=== PATIENT | female | born 1950 | race Caucasian/White ===

== ENCOUNTER → 2016-03-22 | Outpatient (CLI) | payer BC ==
[2015-03-03 08:03] VITALS: BP 110/70
[~2016-03-22] MED LIST: ESTR1TAB15 PO; GABA-587 PO; LEVO75TA5 PO; PROG100C7 PO
--- NOTE | 2016-03-22 11:47 | KCIC ---
PROCEDURE MRI of the cervical spine without contrast 03/22/2016 HISTORY Chronic neck pain which radiates down the left arm. TECHNIQUE Unenhanced T1 weighted, T2 weighted and inversion recovery sagittal and gradient echo and T2 weighted axial images of the cervical spine were obtained. FINDINGS Sagittal and coronal reconstructed images demonstrate minimal lateral curvature of the cervical spine convex to the right. There is straightening of the normal cervical lordosis. Degenerative signal changes are seen involving all of the discs of the cervical spine. Loss of height of the C4-5, C5-6 and C6-7 discs is noted. Degenerative signal changes are seen within the marrow surrounding these discs. No area of abnormal signal intensity is seen involving the cervical spinal cord. On the axial images at the C2-3 disc space thereis a minimal generalized disc bulge. Degenerative changes are seen involving the uncovertebral and facet joints bilaterally. These findings do not result in significant central spinal canal or neural foraminal stenosis. At the C3-4 disc space there is mild generalized disc bulge. Degenerative changes are seen involving the uncovertebral and facet joints, left greater than right. These findings when combined do not result in significant central spinal canal stenosis. Mild left neural foraminal stenosis is seen. The right neural foramina is patent. At the C4-5 disc space there is mild generalized disc bulge. Superimposed on the disc bulge is a focal central disc osteophyte complex. This measures 3 millimeters in AP diameter. Degenerative changes are seen involving the uncovertebral and facet joints, right greater than left. These findings when combined efface the anterior CSF without resulting in significant central spinal canal stenosis. Mild right neural foraminal stenosis is seen. The left neural foramina is patent. At the C5-6 disc space there is a minimal generalized disc bulge. Degenerative changes are seen involving the uncovertebral and facet joints bilaterally. These findings do not result in significant central spinal canal or neural foraminal stenosis. At the C6-7 disc space there is a mild to moderate generalized disc bulge. Degenerative changes are seen involving the uncovertebral and facet joints, left greater than right. These findings efface the anterior CSF without resulting in significant central spinal canal stenosis. Mild left neural foraminal stenosis is seen. The right neural foramina is patent. At the C7-T1 disc space there is a mild generalized disc bulge. Superimposed on the disc bulge is a left paracentral/lateral disc osteophyte complex. This measures 4 millimeters in AP diameter.These findings when combined do not result in significant central spinal canal stenosis. Moderate to severe left neural foraminal stenosis is seen. The disc osteophyte complex appears to impinge upon the exiting left C8 nerve root. The right neural foramina is patent. IMPRESSION Degenerative changes are seen throughout the cervical spine. These findings do not result in significant central spinal canal stenosis at any level. Mild left neural foraminal stenosis is seen at C3-4 and C6-7. Mild right neural foraminal stenosis seen at C4-5. At the C7-T1 disc space a left paracentral/lateral disc osteophyte complex is seen which contributes to moderate to severe left neural foraminal stenosis and appears to impinge upon the exiting left C8 nerve root as outlined above. Electronically signed by: Vin Hickey MD (Mar 22, 2016 11:46:47)
== END | disposition home or self-care (01) ==
LOC: KCIC MRI 07:41
PROVIDERS: ATTEND Family Medicine
DX: M54.12 Radiculopathy, cervical region (principal); M47.892 Other spondylosis, cervical region; M48.02 Spinal stenosis, cervical region; M25.78 Osteophyte, vertebrae; G89.29 Other chronic pain
CPT/HCPCS: 72141

== ENCOUNTER → 2016-03-29 | Outpatient (CLI) | payer BC, OTHER ==
[2015-03-03 08:03] VITALS: BP 110/70
[~2016-03-29] MED LIST changes: +GABA800T2 PO; +IBUP-1007 PO; +IOHEXOL 180 MG/ML 10 ML VIAL. ONE; +methylPREDNISolone ACETATE 40 MG/ML VIAL. ONE; +methylPREDNISolone ACETATE 80 MG/ML VIAL. ONE
--- NOTE | 2016-03-30 01:35 | PAIN ---
DATE OF SERVICE: 03/29/2016 PROGRESS NOTE DIAGNOSES: Cervical radiculopathy with cervical degenerative disk disease. HISTORY OF PRESENT ILLNESS: The patient is a 65-year-old female, who returns for followup status post cervical epidural steroid injections in the past as well as lumbar epidural steroid injections. The patient reports she did very well with each of these, most recently here in 02/2015. The patient reports that now she has increased pain in the base of the neck and left upper extremity, her low back is doing very well and she is very pleased with her progress with it, but the neck and left arm are becoming much more noticeable, much more painful, worse with activity, standing, walking, using her upper extremity for any repetitive motions or even holding items with the left arm or raising over her head on the left side is causing some significant pain, radiation into the left upper extremity, mostly in the posterior shoulder, posterior triceps region and into the fourth and fifth fingers on the left hand. The patient reports no loss of motor function, however, but significant pain with activity involving neck and left arm. The patient's old chart was reviewed as her current medication regimen updated. Current review of systems updated today as well. PHYSICAL EXAMINATION: VITAL SIGNS: Today, blood pressure is 134/77, pulse is 72, respirations 18, temperature 98.3 degrees Fahrenheit, height is 5 feet 2 inches and weighs 141 pounds. GENERAL: The patient is awake, alert, oriented, appropriate, very pleasant demeanor. HEENT: Shows normocephalic and atraumatic. Extraocular movements are intact and symmetrical. Oral cavity shows mucous membranes are moist and pink. Dentition is intact. NECK: Shows anterior throat supple. CHEST: Shows breath sounds clear to auscultation bilaterally. HEART: Shows S1 and S2 clear. ABDOMEN: Soft, nontender, nondistended. BACK: The patient's back shows spine grossly in midline. Low lumbar paraspinous musculature is only very mildly tender with palpation. The patient shows good rotation and motion both laterally as well as extension and flexion. Neck shows some good rotation as well, right and left lateral, greater than 45 degrees with some minor tenderness with extension, but not with forward flexion, mainly in the base of the neck, paraspinous musculature symmetrical on appearance. No atrophy or hypertrophy. Some mild tenderness with palpation in the low cervical paraspinous musculature as well as superomedial trapezius, but is symmetrical. EXTREMITIES: Upper extremities show deep tendon reflexes at 2+ in the biceps and triceps tendons. Motor exam is strong with roving court reporter strength rated at 5/5 as is biceps and triceps flexion. PLAN: Options were discussed with the patient. We will proceed with a cervical epidural steroid injection today with fluoroscopic guidance. Risks were again discussed including, but not limited to bleeding, infection, possibility of epidural hematoma and subsequent neurologic compromise, dural puncture, headaches, spinal cord and/or nerve damage, side effects of steroid medication and poor results regarding pain control. The patient understands and wished to proceed. The patient will return to the clinic in approximately 2 weeks for followup. She was counseled on return appointment, activity level and side effects to be aware of. DIAGNOSES: Cervical radiculopathy with cervical degenerative disk disease. PROCEDURE: Cervical epidural steroid injection in translaminar approach at the C6-C7 level using C-arm fluoroscopic guidance and local anesthesia. MEDICATIONS INJECTED: Depo-Medrol 120 mg plus 5 mL of preservative-free normal saline and 2 mL of Isovue for contrast. CONDITION AT DISCHARGE: Stable. The patient tolerated the procedure well, had no complications. JO LUI MD DR: NAVA/lalita JOB#: [id number] / [id number]
== END ==
LOC: PNCL 10:19
PROVIDERS: ATTEND Anesthesiology
DX: M50.123 Cervical disc disorder at C6-C7 level with radiculopathy (principal)
CPT/HCPCS: 62321; J1030; J1040

== ENCOUNTER → 2016-05-10 | Outpatient (CLI) | payer OTHER ==
[2015-03-03 08:03] VITALS: BP 110/70
--- NOTE | 2016-05-11 02:57 | PAIN ---
DATE OF SERVICE: 05/10/2016 DIAGNOSES: 1. Cervical radiculopathy with cervical degenerative disk disease. 2. Lumbar radiculopathy with lumbar spinal stenosis. HISTORY OF PRESENT ILLNESS: The patient is a 65-year-old female who returns for followup status post cervical epidural steroid injection x 1 on 03/29/2016. The patient reports she did very well at 75% improvement in the neck and left upper extremity pain, still some tingling in the shoulders, but ____ getting to return to a moderate extent for about last week or so, 2 on a scale 10, worse with repetitive motions of the left upper extremity and reaching, grabbing, holding, and lifting items with left arm. No loss of motor function or dropping items. There is some soreness sensation in the left shoulder as well as the base of the neck with repetitive motions. The patient reports it has not been waking her from sleep. She has been doing well with this and most times it is reasonably comfortable during the day, but with some tingling and numbness as well in the left shoulder and upper arm more to the forearm. The patient reports no new changes or other complaints. PHYSICAL EXAMINATION: VITAL SIGNS: The patient's blood pressure is 129/75, pulse 72, respirations 18, temperature 98.1 degrees Fahrenheit, height is 5 feet 2 inches, and weight is 137 pounds. GENERAL: The patient is awake, alert, oriented, appropriate, very pleasant demeanor. HEENT: Head shows normocephalic, atraumatic. Extraocular movements are intact and symmetrical. Oral cavity shows mucous membranes moist and pink. Dentition is intact. NECK: Shows anterior throat supple without palpable lymphadenopathy noted. Swallow reflex is symmetrical. CHEST: Shows normal on inspection. Breath sounds are clear to auscultation bilaterally. HEART: Shows S1 and S2 clear. ABDOMEN: Soft, nontender, and nondistended. No palpable organomegaly is noted. No rebound or guarding demonstrated. BACK: Shows spine grossly midline. Cervical paraspinous musculature, some mild to moderate tenderness in the low cervical distribution bilaterally into the superior medial trapezius, slightly more tender on the left than the right, but appears symmetrical without evidence of atrophy, hypertrophy, no trigger points, no radiation of pain. The patient shows full rotational motion of cervical spine, both laterally as well as extension and flexion without exacerbation of pain as well. EXTREMITIES: Upper extremities show deep tendon reflexes 2+ in the biceps and triceps tendons. Motor exam is 5/5 with ore feeder strength, biceps and triceps flexion and symmetrical. Peripheral pulses are 2+ in radial distribution. No peripheral edema is noted. Options were discussed with the patient and the patient's old chart was reviewed as her current medication regimen updated. Current review of systems updated today as well. We will proceed with a second cervical epidural steroid injection today with fluoroscopic guidance. Risks were again discussed including, but not limited to bleeding, infection, possibility of epidural hematoma, subsequent neurologic compromise, dural puncture, headaches, spinal cord and/or nerve damage, side effects of steroid medication and poor results regarding pain control. The patient understands and wished to proceed. The patient will return to clinic in approximately 2 weeks for followup, was counseled on return appointment, activity level, and side effects to be aware of. DIAGNOSIS: Cervical radiculopathy with cervical degenerative disk disease. PROCEDURE: Cervical epidural steroid injection in translaminar approach at C6-C7 level using C-arm fluoroscopic guidance under sterile prep and drape using local anesthetic. MEDICATION INJECTED: Depo-Medrol 120 mg plus preservative-free normal saline 5 mL and 2 mL of Isovue for contrast. CONDITION AT DISCHARGE: Stable. The patient tolerated procedure well, had no complications. JO LUI MD DR: NAVA/lalita JOB#: [id number] / [id number]
== END | disposition home or self-care (01) ==
LOC: PNCL 08:02
PROVIDERS: ATTEND Anesthesiology
DX: M50.123 Cervical disc disorder at C6-C7 level with radiculopathy (principal); E03.9 Hypothyroidism, unspecified; Z87.39 Personal history of other diseases of the musculoskeletal system and connective tissue
CPT/HCPCS: 62321; J1030; J1040

== ENCOUNTER 2016-08-28 14:46 | Emergency (ER) | payer OTHER ==
[~2016-08-28] VITALS: Ht 157.5 cm; Wt 57.2 kg
[~2016-08-28 14:46] MED LIST changes: -IOHEXOL 180 MG/ML 10 ML VIAL. ONE; +PROG100C15 PO; -PROG100C7 PO; -methylPREDNISolone ACETATE 40 MG/ML VIAL. ONE; -methylPREDNISolone ACETATE 80 MG/ML VIAL. ONE
[2016-08-28 15:01] VITALS: BP 146/65
[2016-08-28] MEDS ORDERED: LIDOCAINE 1% / SOD BICARB 8.4% 20 ML VIAL. IJ ONE ×2 (15:27→15:30)
[2016-08-28] MEDS ORDERED: DIPHTH,PERTUSS(ACELL),TET TOX 0.5 ML DISP.SYRIN. VAX IM ONE (15:30)
--- NOTE | 2016-08-28 15:31 | PHYS DOC ---
Past Medical History Past Medical History: No Pertinent History Past Surgical History: Other Additional Past Surgical Histo: (R) ARM/SHOULDER REPAIR Alcohol Use: Rarely Drug Use: None Adult General Chief Complaint Chief Complaint: LACERATION/AVULSION HPI HPI Patient is a 65 year old female who presents with right index finger knuckle laceration. 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 Review of Systems Review of Systems Constitutional: Denies fever or chills [] Eyes: Denies change in visual acuity, redness, or eye pain [] Musculoskeletal: Denies back pain or joint pain [] Integument: right index finger knuckle laceration Neurologic: Denies headache, focal weakness or sensory changes [] Endocrine: Denies polyuria or polydipsia [] Current Medications Current Medications Current Medications Medications (Trade) Dose Ordered Sig/Emma Start Time Stop Time Status Last Admin Dose Admin Diphtheria/ Tetanus/Acell Pertussis (Boostrix) 0.5 ml ONCE ONCE 08/28/16 15:30 08/28/16 15:31 DC Lidocaine/Sodium Bicarbonate (Buffered Lidocaine 1%) 20 ml 1X ONCE 08/28/16 15:30 08/28/16 15:31 DC Allergies Allergies Allergies Coded Allergies Type Severity Reaction Last Updated Verified No Known Drug Allergies 08/24/14 No Physical Exam Physical Exam Constitutional: Well developed, well nourished, no acute distress, non-toxic appearance. [] HENT: Normocephalic, atraumatic, bilateral external ears normal, oropharynx moist, no oral exudates, nose normal. [] Skin: Knuckle the right index finger with a laceration approximately 2 cm long, there is no obvious tendon involvement. Patient able to flex and extend the right index finger at the MIP, PIP and DIP joints. Adequate radial sensation to the right index finger. +2 right radial pulse. Cap refill less than 2 seconds the right index finger. Back: No tenderness, no CVA tenderness. [] Extremities: No tenderness, no cyanosis, no clubbing, ROM intact, no edema. [] Neurologic: Alert and oriented X 3, normal motor function, normal sensory function, no focal deficits noted. [] Psychologic: Affect normal, judgement normal, mood normal. [] Current Patient Data Vital Signs Vital Signs Date Time Temp Pulse Resp B/P (MAP) Pulse Ox O2 Delivery O2 Flow Rate FiO2 08/28/16 15:01 98.0 76 14 98 Room Air 98.0 EKG EKG [] Radiology/Procedures Radiology/Procedures Indication: Right index finger knuckle laceration Procedure: The patient was placed in the appropriate position and anesthesia around the laceration was 1% buffered lidocaine. The area was then cleaned with 250 ML of normal saline and Betadine. The laceration was closed with 5 interrupted sutures using 5.0 Ethlon. The wound area was then dressed with gauzed. Total repaired wound length:approx. 2 cm Other Items: none The patient tolerated the procedure well Complications: none Course & Med Decision Making Course & Med Decision Making Pertinent Labs and Imaging studies reviewed. (See chart for details) Patient has right index finger laceration which was closed by me with stitches as noted in procedures. She was provided wound care instructions as well as return precautions. She is to follow-up with employee health in 7-10 days for suture removal. She was given tetanus in the ED. Dragon Disclaimer Dragon Disclaimer This electronic medical record was generated, in whole or in part, using a voice recognition dictation system. Departure Departure Impression: Primary Impression: Laceration of right hand Disposition: 01 HOME, SELF-CARE Condition: STABLE Referrals: ANI PATEL MD (PCP) Follow up with employee health office for [facility] in 7-10 days for suture removal and wound check Patient Instructions: Laceration Care, Adult Additional Instructions: You were seen for right hand laceration which was closed with stitches. Keep the area clean and dry. Apply Neosporin to the area twice a day. Monitor it for signs and symptoms of infection including increased redness, warmth over the area, yellow, or purulent drainage over the area or if you develop a fever and return to the ED. Follow-up with employee health in 7-10 days for suture removal. Problem Qualifiers Primary Impression: Laceration of right hand Encounter type: initial encounter Foreign body presence: without foreign body Qualified Codes: S61.411A - Laceration without foreign body of right hand , initial encounter HAYLIE DAVIDSON APRN Aug 28, 2016 15:31
== END 2016-08-28 16:08 | disposition home or self-care (01) ==
LOC: ER 14:46
DX: S61.210A Laceration without foreign body of right index finger without damage to nail, initial encounter (principal); W23.0XXA Caught, crushed, jammed, or pinched between moving objects, initial encounter; Y93.89 Activity, other specified; Y99.8 Other external cause status; Y92.238 Other place in hospital as the place of occurrence of the external cause
CPT/HCPCS: 12001; 90471; 90715; 99283-25

== ENCOUNTER → 2016-09-05 | Outpatient (CLI) | payer OTHER ==
[2016-08-28 15:01] VITALS: BP 146/65
--- NOTE | 2016-09-05 09:46 | KCIC ---
Limited abdomen ultrasound History: Right upper quadrant pain, nausea and vomiting Comparison: None. Findings: Multiple sonographic images of the abdomen are submitted. No abnormality is identified of the visualized pancreas, tail not well-visualized due to bowel gas. No focal hepatic lesion is demonstrated, hepatic echotexture considered within normal limits. There is segmental visualization of the inferior vena cava. Gallbladder is present without pericholecystic fluid. However technologist reports a positive sonographic Oscar's sign. There is fold of the gallbladder. There is apparently mild dependent echogenicity in the gallbladder lumen compatible with cholelithiasis. There is no gallbladder wall thickening. Common bile duct is within normal limits at 0.5 cm. No free fluid is demonstrated. Right kidney measured 10.9 x 3 x 5.8 cm, mild right pelviectasis. Impression: 1. There apparently is mild cholelithiasis. Technologist reports a positive sonographic Oscar's sign which is nonspecific in the absence of significant gallbladder wall thickening or pericholecystic fluid. There is no significant biliary ductal dilatation. Electronically signed by: Andres Muhammad MD (09/05/2016 9:42 AM)
== END | disposition home or self-care (01) ==
LOC: KCIC US 08:49
PROVIDERS: ATTEND Family Medicine
DX: R10.11 Right upper quadrant pain (principal); K82.8 Other specified diseases of gallbladder
CPT/HCPCS: 76705

== ENCOUNTER → 2016-09-27 | Day surgery (SDC) | payer OTHER ==
[~2016-09-27] VITALS: Ht 157.5 cm; Wt 56.2 kg
[~2016-09-27] MED LIST changes: +BUPIVACAINE-EPI 0.5%-1:200000 50 ML VIAL. ONE; +DEXAMETHASONE SOD PHOS 20 MG/5 ML VIAL. ONE; +GLYCOPYRROLATE 1 MG/5 ML VIAL. ONE; +HYDROmorphone 2 MG/ML VIAL IV PRN; +IOHEXOL 300 MG/ML 50 ML VIAL. ONE; +KETOROLAC 30 MG/ML INJ FOR OR. INJ ONE; +LIDOCAINE 1% 1 ML SYRINGE. ID PRN; +LIDOCAINE 2% PF Vial for OR 5 ML VIAL. ONE; +MORPHINE SULFATE 2 MG/ML DISP.SYRIN. IV PRN; +NEOSTIGMINE METHYLSULFATE 5 MG/5 ML SYRINGE. ONE; +ONDA4TAB7 PO; +ONDANSETRON PF 4 MG/2 ML VIAL. IV PRN; +ONDANSETRON PF 4 MG/2 ML VIAL. ONE; +OXYC-323 PO; +PROCHLORPERAZINE 10 MG/2 ML VIAL. IV PRN; +PROPOFOL 20 ML IV ONE; +ROCURONIUM 50 MG/5 ML VIAL. ONE; +SURGICEL HEMOSTAT 4X8 EACH. ONE; +ePHEDrine PF IN SALINE 50 MG/5 ML DISP.SYRIN IV ONE; +fentaNYL PF VIAL 250 MCG/5 ML VIAL ONE; +oxyCODONE/APAP 5/325 1 TAB TABLET PO ONE
[2016-09-27] MEDS: IV RINGERS,LACTATED 1000ML 1,000 ML IV SCH ×2 (07:00→10:22)
--- NOTE | 2016-09-27 08:42 | RAD ---
Intraoperative cholangiogram, 09/27/2016: History: Cholecystectomy 3 spot films from surgery are presented for review. Contrast has been injected into the cystic duct remnant. 0.12 minutes of fluoroscopy time was utilized. There is good flow of contrast into the duodenum at the ampulla. No filling defect is seen in the common duct to suggest a retained calculus. The incompletely opacified intrahepatic ducts are unremarkable. No contrast extravasation is seen. IMPRESSION: No significant abnormality is detected.
--- NOTE | 2016-09-27 09:10 | PDOC4 ---
Operative Note Operative Note Operative Note: Preoperative Diagnosis: Symptomatic cholelithiasis Postoperative Diagnosis: Same Procedure: Laparoscopic cholecystectomy with intraoperative cholangiogram Surgeons: Carlitos Anesthesia: GenSunil Estimated Blood Loss: 10 mL Specimen: Gallbladder to pathology Drains: None Complications: None Indications: The patient is a 65-year-old female who is been experiencing recurrent upper abdominal pain consistent with biliary colic. An ultrasound was performed that showed gallstones. Surgical treatment was offered by means of a laparoscopic cholecystectomy. The risks of surgery were discussed which include bleeding, infection, bile duct injury, bile leak, pain, the potential for additional surgeries or procedures. The patient understands and would like to proceed. Description: The patient was taken to the operating room and laid supine on the operating table. General anesthesia was performed. The abdomen was prepped with ChloraPrep and draped in a standard surgical fashion. A small infraumbilical incision was made with a scalpel. The Veress needle was then inserted and a pneumoperitoneum was then created. A 5 mm trocar was then inserted and the laparoscope was introduced. In the upper midabdomen a 5 mm trocar was inserted and in the right upper quadrant two 2.3 mm mini lap graspers were inserted. The gallbladder was retracted cephalad. The cystic duct was dissected free from surrounding tissues. One clip was placed on the duct near the gallbladder junction. An opening was made in the duct and a cholangiocatheter placed within and secured with a clip. Using contrast dye and fluoroscopy an intraoperative cholangiogram was performed that appeared unremarkable. The clip and catheter were then withdrawn. Three clips were placed on the cystic duct and it was divided. The cystic artery was then identified, dissected free, doubly clipped and divided as well. The gallbladder was then mobilized away from the liver with cautery. The umbilical 5 millimeter trocar was exchanged for an 11 millimeter trocar. The gallbladder was then placed in an endoscopic bag and extracted at the umbilical trocar site. The fascia there was closed with an 0 Vicryl suture. All blood and irrigation fluid was suctioned and hemostasis was good. The remaining ports were removed and the pneumoperitoneum was relieved. The skin incisions were injected with half percent Marcaine with epinephrine, and all were closed using 4-0 Monocryl suture. Steri-Strips and dressings were then applied. The patient tolerated the procedure well and was sent to the recovery room in stable condition. At the end of the case all counts were correct. KASSIE SEGOVIA MD Sep 27, 2016 09:10
--- NOTE | 2016-09-27 09:12 | DISCH ---
DISCHARGE INSTRUCTIONS Condition on Discharge Condition on Discharge: Stable Activity After Discharge Activity Instructions for Disc: Other, see below (no lifting over 20 lbs X 2 weeks) Driving Instructions after Dis: Other, see below (no driving while taking pain meds) Diet after Discharge Diet after Discharge: Regular Wound Incision Care Wound/Incision Care: Other, see below (may remove bandaids tomorrow and shower , steristrips will fall off on their own) Follow-Up Follow up with: Dr Segovia in the office in 2 weeks, call for appt KASSIE SEGOVIA MD Sep 27, 2016 09:12
[2016-09-27] MEDS: fentaNYL PF VIAL 100 MCG/2 ML VIAL IV PRN ×4 (09:22→10:18)
[2016-09-27 11:00] VITALS: BP 122/58
--- NOTE | 2016-09-28 16:10 | PATHOLOGY ---
PATHOLOGY REPORT * * * * * * * * FINAL DIAGNOSIS: Gallbladder "gallbladder and contents", cholecystectomy: - Moderate chronic cholecystitis with cholesterolosis. ([facility]; 09/28/2016) REPORT ELECTRONICALLY SIGNED BY: Pb Steen M.D. DATE/TIME: 09/28/2016 16:09 * * * * * * * * GROSS PATHOLOGY: Received in formalin labeled "Noelle Snyder gallbladder," is a 7.8 x 3.5 x 1.9 cm, intact gallbladder with dull zhao green serosal surfaces. Opening the gallbladder reveals yellow green velvety mucosa, with focal areas of lewis yellow striation, suggestive of cholesterolosis and an average wall thickness of 0.3 cm. The contents of the gallbladder are filtered and calculi are not present and no masses are noted grossly. Sales Representative Supervisor sections from the body and fundus are submitted along with the proximal margin in cassette A1. ([facility]; 09/27/16) INITIAL CPT CODE(S): A; 39523 Professional services performed [place] [address] Technical services performed by [facility] at [address] [place] [address] [address], [place] [address]. SPECIMEN(S) RECEIVED: A.Gallbladder and contents CLINICAL HISTORY: Gallstones PATIENT: NOELLE SNYDER /AGE: 710/15/1950 (Age: 65) PATIENT #: [id number] ALT CASE #: SPECIMEN COLLECTION DATE: 09/27/2016 SPECIMEN RECEIVED DATE: 09/27/2016 [facility] - [id number] [place] [address] - PHONE: [phone] * * * END OF REPORT * * *
== END ==
LOC: SURG 07:12
PROVIDERS: ATTEND Surgery
DX: K80.20 Calculus of gallbladder without cholecystitis without obstruction (principal); E78.00 Pure hypercholesterolemia, unspecified; E03.9 Hypothyroidism, unspecified; Z98.890 Other specified postprocedural states
CPT/HCPCS: 47563; 74300; J0780; J1100; J1885; J2001; J2405; J2704; J2710; J3010; J3490; Q9967; C1769; J7030

== ENCOUNTER → 2016-11-17 | Outpatient (CLI) | payer OTHER ==
[2016-09-27 11:00] VITALS: BP 122/58
[~2016-11-17] MED LIST changes: -BUPIVACAINE-EPI 0.5%-1:200000 50 ML VIAL. ONE; -DEXAMETHASONE SOD PHOS 20 MG/5 ML VIAL. ONE; -GLYCOPYRROLATE 1 MG/5 ML VIAL. ONE; -HYDROmorphone 2 MG/ML VIAL IV PRN; -IOHEXOL 300 MG/ML 50 ML VIAL. ONE; -KETOROLAC 30 MG/ML INJ FOR OR. INJ ONE; -LIDOCAINE 1% 1 ML SYRINGE. ID PRN; -LIDOCAINE 2% PF Vial for OR 5 ML VIAL. ONE; -MORPHINE SULFATE 2 MG/ML DISP.SYRIN. IV PRN; -NEOSTIGMINE METHYLSULFATE 5 MG/5 ML SYRINGE. ONE; -ONDANSETRON PF 4 MG/2 ML VIAL. IV PRN; -ONDANSETRON PF 4 MG/2 ML VIAL. ONE; -PROCHLORPERAZINE 10 MG/2 ML VIAL. IV PRN; -PROPOFOL 20 ML IV ONE; -ROCURONIUM 50 MG/5 ML VIAL. ONE; -SURGICEL HEMOSTAT 4X8 EACH. ONE; -ePHEDrine PF IN SALINE 50 MG/5 ML DISP.SYRIN IV ONE; -fentaNYL PF VIAL 250 MCG/5 ML VIAL ONE; -oxyCODONE/APAP 5/325 1 TAB TABLET PO ONE
--- NOTE | 2016-11-17 15:20 | RAD ---
DATE: Right breast lump EXAM: Digital diagnostic right mammogram and right breast ultrasound HISTORY: Palpable lump in the right breast COMPARISON: Bilateral screening mammogram from 02/25/16 This study was interpreted with the benefit of Computerized Aided Detection (CAD). TECHNIQUE: CC and MLO views of the right breast. Real-time grayscale imaging of the right upper outer breast. FINDINGS: Right diagnostic mammogram: Breast Density: HETERO The breast parenchyma is heterogeneously dense, which could reduce sensitivity of mammography. Breast parenchyma level C.. A skin marker has been placed in the right upper outer breast corresponds to the area of palpable concern. Increasing density and nodularity is seen in the right upper outer breast. Ultrasound to follow Right breast ultrasound: Targeted sonographic evaluation of the right breast is performed and images are obtained. There is a dominant simple cyst measuring 1.1 x 1.1 x 0.8 cm at 9:00 position, posterior interpolar level. There are additional clusters of cysts, conglomerate measurement of 2.1 x 2.0 x 1.7 cm at 10:00 position, 4 cm from the nipple. No solid lesion is identified. IMPRESSION: Persistent asymmetric density and nodularity in the right upper outer breast corresponds to multiple simple appearing cysts. BI-RADS CATEGORY: 2 BENIGN FINDING(S) RECOMMENDED FOLLOW-UP: 12M 12 MONTH FOLLOW-UP PQRS compliance statement: Patient information was entered into a reminder system with a target due date for the next mammogram. Mammography is a sensitive method for finding small breast cancers, but it does not detect them all and is not a substitute for careful clinical examination. A negative mammogram does not negate a clinically suspicious finding and should not result in delay in biopsying a clinically suspicious abnormality. "Our facility is accredited by the [employer] Mammography Program."
== END | disposition home or self-care (01) ==
LOC: MAMMO 10:59
PROVIDERS: ATTEND Obstetrics & Gynecology
DX: R92.8 Other abnormal and inconclusive findings on diagnostic imaging of breast (principal); N60.01 Solitary cyst of right breast
CPT/HCPCS: 76641; G0206; 77065

== ENCOUNTER → 2017-01-09 | Outpatient (CLI) | payer OTHER ==
[2016-09-27 11:00] VITALS: BP 122/58
--- NOTE | 2017-01-09 14:33 | KCIC ---
DATE: 01/09/2017 EXAM: MAMMO SHAMEKA ANALIG LT, BREAST LEFT HISTORY: Palpable abnormality in the upper outer left breast. COMPARISON: Prior mammograms from 02/25/2016 and 01/08/2015 This study was interpreted with the benefit of Computerized Aided Detection (CAD). The breast parenchyma is heterogeneously dense, which could reduce sensitivity of mammography. Breast parenchyma level C. FINDINGS: CC and MLO views of the left breast were obtained. Spot compression CC and MLO views of the left breast were obtained. True lateral and spot magnification true lateral and CC views of the left breast were obtained. Bilateral breast tomosynthesis in CC and MLO views were acquired. Targeted ultrasound of the left breast was performed in the upper outer quadrant. Microcalcifications are identified in the upper outer left breast. Spot magnification views as well as true lateral view were obtained for further evaluation. These microcalcifications are predominantly round with a few that layer suggestive of milk of calcium. There are additional microcalcifications which are subtly coarse. These are probably benign, however 6 month follow-up is recommended to ensure stability. There are multiple circumscribed masses in the upper outer left breast. There is one which appears increased in size or new from the prior examination measuring approximately 9-10 mm. Targeted ultrasound of the left breast was performed. At the 2:00 position, 5.5 cm from the nipple in the area of palpable abnormality, there is a 1.2 x 1.2 x 0.8 cm anechoic cyst with through transmission. Patient states that this is not painful or uncomfortable. Patient prefers not to have this cyst aspirated at this time. Additional anechoic cysts are identified at the 12:00 position 4.5 cm from the nipple without internal vascularity. At the 1:00 position, 4 several images from the nipple, there is a cyst with dependent calcification which may represent milk of calcium. At the 12:30 position, 3 cm from the nipple, there are subcentimeter hypoechoic masses with through transmission suggestive of complicated cysts. Recommend follow-up 6 month ultrasound for these probably benign findings. IMPRESSION: Probably benign findings in the left breast including microcalcifications and simple and complicated cysts. Area of palpable abnormality corresponds with a simple cyst measuring 1.2 x 1.2 x 0.8 cm. Patient deferred cyst aspiration at this time. Recommend 6 month follow-up ultrasound and mammogram. BI-RADS CATEGORY: 3 PROBABLY BENIGN FINDING(S)-SHORT INTERVAL FOLLOW-UP SUGGESTED RECOMMENDED FOLLOW-UP: 6M 6 MONTH FOLLOW-UP PQRS compliance statement: Mammography is a sensitive method for finding small breast cancers, but it does not detect them all and is not a substitute for careful clinical examination. A negative mammogram does not negate a clinically suspicious finding and should not result in delay in biopsying a clinically suspicious abnormality. "Our facility is accredited by the [employer] Mammography Program."
== END | disposition home or self-care (01) ==
LOC: KCIC MAMMO 12:23
PROVIDERS: ATTEND Obstetrics & Gynecology
DX: N63.20 Unspecified lump in the left breast, unspecified quadrant (principal); N63.21 Unspecified lump in the left breast, upper outer quadrant; N60.02 Solitary cyst of left breast
CPT/HCPCS: 76641; G0206; G0279; 77061; 77065

== ENCOUNTER → 2017-07-09 | Outpatient (CLI) | payer OTHER | END | disposition home or self-care (01) | LOC: KCIC MAMMO 09:47 | DX: R92.8 Other abnormal and inconclusive findings on diagnostic imaging of breast (principal) | CPT/HCPCS: 76641; 77065; G0279 ==

== ENCOUNTER → 2018-01-01 | Outpatient (CLI) | payer MEDICARE ==
[2016-09-27 11:00] VITALS: BP 122/58
--- NOTE | 2018-01-01 13:12 | KCIC ---
EXAM: Dual energy x-ray absorptiometry (DEXA). HISTORY: Postmenopausal female presents for osteoporosis screening. COMPARISON: None. TECHNIQUE: Dual energy x-ray absorptiometry of the lumbar spine and left was performed. Calculation of bone mineral density based on standard deviations above or below the expected young adult normal value (T-score) was completed. FINDINGS: The average bone mineral density in the 1st through 4th lumbar vertebrae is 1.275 g/cmxcm, corresponding with a T-score of 2.1. The average total bone mineral density in the left hip is 0.840 g/cmxcm, corresponding with a T-score of -0.8. IMPRESSION: Normal bone mineral density. Note: Definitions established by the World Health Organization: 1. Normal: T-score is -1.0 or above. 2. Osteopenia: T-score is between -1.0 and -2.5 . 3. Osteoporosis: T-score is -2.5 or below. Electronically signed by: Kari Bello MD (01/01/2018 1:08 PM) [facility]
== END | disposition home or self-care (01) ==
LOC: KCIC DEXA 10:31
PROVIDERS: ATTEND Obstetrics & Gynecology
DX: Z13.820 Encounter for screening for osteoporosis (principal); Z78.0 Asymptomatic menopausal state; Z79.899 Other long term (current) drug therapy
CPT/HCPCS: 77080

== ENCOUNTER → 2018-05-27 | Outpatient (CLI) | payer MEDICARE ==
[2016-09-27 11:00] VITALS: BP 122/58
[~2018-05-27] MED LIST changes: -GABA-587 PO; +GABA-689 PO; -GABA800T2 PO; +GABA800T5 PO; -OXYC-323 PO; +OXYC1TAB15 PO
--- NOTE | 2018-05-27 12:06 | KCIC ---
EXAM: Right humerus, 2 views. HISTORY: Pain. COMPARISON: None. FINDINGS: 2 views of the right humerus are obtained. There is no fracture, dislocation or subluxation. No lytic or sclerotic osseous lesion is seen. There is no periosteal reaction. There is mild right acromioclavicular spurring. IMPRESSION: 1. No acute osseous finding. 2. Mild right acromioclavicular osteoarthritis. Electronically signed by: Kari Bello MD (05/27/2018 12:03 PM) [facility]IC1
== END | disposition home or self-care (01) ==
LOC: KCIC 11:18
PROVIDERS: ATTEND Family Medicine
DX: M19.011 Primary osteoarthritis, right shoulder (principal)
CPT/HCPCS: 73060

== ENCOUNTER → 2018-06-06 | Outpatient (CLI) | payer MEDICARE ==
[2016-09-27 11:00] VITALS: BP 122/58
--- NOTE | 2018-06-06 12:44 | KCIC ---
EXAM: CT RIGHT HUMERUS DATE: 06/06/2018 12:00 PM COMPARISON: No prior INDICATION: Right upper arm pain for 2 months after injury. TECHNIQUE: CT of the right humerus was performed without IV contrast. Axial coronal and sagittal reformatted images were generated. PQRS compliance statement - One or more of the following individualized dose reduction techniques were utilized for this study: 1. Automated exposure control 2. Adjustment of the mA and/or kV according to patient size 3. Use of iterative reconstruction technique FINDINGS: Moderate AC joint degenerative changes are seen with inferior projecting osteophytes and capsular hypertrophy. Mild decreased bone mineral density. No evidence for fracture or osteonecrosis. The humeral head maintains normal sphericity. Normal muscle bulk of the right upper extremity. No elbow joint effusion. IMPRESSION: No evidence of acute fracture or dislocation. AC joint osteoarthritis. Electronically signed by: Rj Ruggiero MD (06/06/2018 12:41 PM) [facility]-KCIC2
== END | disposition home or self-care (01) ==
LOC: KCIC CT 11:36
PROVIDERS: ATTEND Family Medicine
DX: M19.011 Primary osteoarthritis, right shoulder (principal); M25.711 Osteophyte, right shoulder
CPT/HCPCS: 73200

== ENCOUNTER → 2018-10-17 | Outpatient (CLI) | payer MEDICARE ==
[2016-09-27 11:00] VITALS: BP 122/58
--- NOTE | 2018-10-17 13:06 | KCIC ---
Bilateral diagnostic digital mammograms with 3-D tomosynthesis: Reason for examination: Bilateral breast lumps. Comparison is made to previous studies dated back to 02/25/2016. Bilateral mammograms in CC and oblique projections were obtained with 2-D imaging and 3-D tomosynthesis imaging on a Siemens Inspiration unit and reviewed on the workstation. Interpretation was made with the benefit of CAD. The skin and nipples show no abnormalities. No abnormal axillary lymph nodes are seen. The breast parenchyma is heterogeneously dense. (Breast density: Category C.) There are circumscribed nodular densities in the upper outer quadrants of the breasts bilaterally. There does appear to be increased size of the nodules in the left breast. The largest nodule in the right breast may be slightly smaller than on previous exam. There are no new suspicious calcifications. Impression: Circumscribed nodules bilaterally with increase in size in the nodule seen in the left breast. Ultrasound to follow. Your patient's mammogram demonstrates that she has dense breast tissue (breast density category C or D), which could hide abnormalities, and if she has other risk factors for breast cancer that have been identified, she might benefit from supplemental screening tests that may be suggested by you as her ordering physician. Dense breast tissue, in and of itself, is a relatively common condition. Therefore, this information is not provided to cause undue concern, but rather to raise your awareness and to promote discussion with your patient regarding the presence of other risk factors, in addition to dense breast tissue. Your patient's mammography results will be sent to her. BI-RAD Category 0: Incomplete. Needs additional imaging evaluation. Bilateral breast ultrasound: Comparison is made to previous examination of the left breast dated 07/09/2017 and previous examination of the right breast dated 11/17/2016. Ultrasound examination was performed bilaterally in the areas of clinical and mammographic concern and at the axilla. In the right breast, there is a small 6.9 mm cystic-appearing lesion with some posterior acoustic enhancement at the 9:30 position 3 cm from the nipple. There is some cystic ductal ectasia in the retroareolar 9:00 position. No solid nodules are seen. No abnormal appearing lymph nodes are seen in the axilla. In the left breast, at the 11:30 position 5 cm from the nipple, there is a 1.4 cm simple cyst. In the 12:00 position 4 cm from the nipple, there is a 2.1 cm cyst with an adjacent 4.5 mm focus of fibrocystic change. In the 12:00 position 2.5 cm from the nipple, there is a 2.7 cm simple cyst. In the 2:00 position 5 cm from the nipple, there are clustered cysts measuring up to 9.7 mm in size. In the 2:30 position 4 cm from the nipple, there is a 1.7 cm simple cyst. No solid suspicious-appearing nodules are seen. No abnormal appearing lymph nodes are seen in the left axilla. IMPRESSION: Benign-appearing cystic lesions bilaterally correspond to the mammographic abnormalities. Recommend routine mammographic follow-up. BI-RADS Category 2: Benign. "Our facility is accredited by the [employer] Mammography Program." This patient's information has been entered into a reminder system for the patient to be notified with the results of her examination and a target date for the next mammogram. Electronically signed by: Dione Zimmerman MD (10/17/2018 1:03 PM) [facility] [id number]
== END | disposition home or self-care (01) ==
LOC: KCIC MAMMO 08:54
PROVIDERS: ATTEND Internal Medicine
DX: N63.20 Unspecified lump in the left breast, unspecified quadrant (principal); N63.10 Unspecified lump in the right breast, unspecified quadrant
CPT/HCPCS: 76641; 77066; G0279; 77062

== ENCOUNTER → 2019-01-13 | Outpatient (CLI) | payer MEDICARE ==
[2016-09-27 11:00] VITALS: BP 122/58
--- NOTE | 2019-01-13 08:30 | RAD ---
ABDOMEN COMPLETE History: Right upper quadrant pain Comparison: September 05, 2016 Findings: Multiple sonographic images of the abdomen are submitted. There is no abnormality of the visualized pancreas. There is segmental visualization of the inferior vena cava. Abdominal aortic caliber is within normal limits up to 1.9 cm, distally obscured by bowel gas. Hepatic echotexture can be considered within normal limits. Right lobe of liver measured 13.7 cm longitudinal. There has been cholecystectomy. Common bile duct is within normal limits about 0.5 cm. Right kidney measured 10.4 x 4.5 x 4.2 cm, no hydronephrosis. Left kidney measured 10.9 x 4.1 x 4.3 cm, no hydronephrosis. Spleen measured about 9.3 cm longitudinal. Impression: 1. No significant abnormality is demonstrated. Electronically signed by: Andres Muhammad MD (01/13/2019 8:27 AM) [facility]-KCIC1
== END | disposition home or self-care (01) ==
LOC: US 07:41
PROVIDERS: ATTEND Internal Medicine
DX: K52.9 Noninfective gastroenteritis and colitis, unspecified (principal); Z90.49 Acquired absence of other specified parts of digestive tract
CPT/HCPCS: 76700

== ENCOUNTER → 2019-02-19 | Outpatient (CLI) | payer MEDICARE ==
[2016-09-27 11:00] VITALS: BP 122/58
[~2019-02-19] MED LIST changes: +IOHEXOL 240 MG/ML 50ML VIAL. PO ONE; +IOHEXOL 300 MG/ML 100ML VIAL. IV ONE
--- NOTE | 2019-02-19 16:42 | KCIC ---
CT abdomen pelvis with contrast dated 02/19/2019. No comparison available. Clinical indication: Right upper quadrant pain. TECHNIQUE: Per contiguous axial imaging of the abdomen and pelvis performed after the administration of 89 cc Omnipaque 300. One or more of the following individualized dose reduction techniques were utilized for this examination: 1. Automated exposure control 2. Adjustment of the mA and/or kV according to patient size 3. Use of iterative reconstruction technique. FINDINGS: Limited images of the lung bases are clear. Heart size within normal limits. No pleural or pericardial effusion. Mild low-density of the liver suggesting fatty infiltration. No apparent mass. Biliary tree normal in caliber. The gallbladder is surgically absent. Spleen is normal in size. Pancreas, adrenal glands and kidneys are unremarkable. No hydronephrosis. Partially opacified GI tract is normal in caliber and contour. No focal bowel wall thickening. No inflammatory stranding in the mesentery. No ascites or lymphadenopathy. Abdominal aorta normal in caliber. Appendix normal in caliber. Images the pelvis show nondistended urinary bladder. Uterus and adnexa are unremarkable. No free fluid or lymphadenopathy. Bone windows show no acute findings. Mild multilevel spondylosis. IMPRESSION: 1. No acute abnormality of abdomen or pelvis. Normal appendix. 2. Mild fatty infiltration of the liver. 3. Status post cholecystectomy. Electronically signed by: Silvestre Dooley MD (02/19/2019 4:40 PM) [facility]2
== END | disposition home or self-care (01) ==
LOC: KCIC CT 13:51
PROVIDERS: ATTEND Internal Medicine
DX: K76.0 Fatty (change of) liver, not elsewhere classified (principal); K52.9 Noninfective gastroenteritis and colitis, unspecified; Z90.49 Acquired absence of other specified parts of digestive tract
CPT/HCPCS: 74177; 82565; Q9966; Q9967

== ENCOUNTER → 2019-03-21 | Outpatient (CLI) | payer MEDICARE ==
[2016-09-27 11:00] VITALS: BP 122/58
[~2019-03-21] MED LIST changes: -IOHEXOL 240 MG/ML 50ML VIAL. PO ONE; -IOHEXOL 300 MG/ML 100ML VIAL. IV ONE
--- NOTE | 2019-03-21 15:25 | RAD ---
Examination: MRCP WO CONTRAST History: Right upper quadrant pain. Elevated lipase. Comparison/Correlation: 02/19/2019 CT abdomen and pelvis with contrast Findings: Multiplanar, multisequence images of the abdomen were obtained according to MRCP protocol. Maximum intensity projection images were provided. Liver, spleen, adrenal glands, and kidneys are unremarkable. Left renal superior pole cyst is present. Moderate quantity of stool in the colon noted. Pancreas is normal with no surrounding inflammation or fluid collection. Common bile duct is normal. There is no pancreatic ductal dilatation. No findings to suggest pancreatic divisum. No enlarged upper abdominal lymph nodes. No upper abdominal ascites. Impression: Pancreas is unremarkable. No suspicious findings. No biliary dilatation. Electronically signed by: Alcon Montes MD (03/21/2019 3:22 PM) [facility]
== END | disposition home or self-care (01) ==
LOC: MRI 08:28
PROVIDERS: ATTEND Internal Medicine
DX: N28.1 Cyst of kidney, acquired (principal); Z90.49 Acquired absence of other specified parts of digestive tract
CPT/HCPCS: 74181

== ENCOUNTER → 2019-05-07 | Outpatient (CLI) | payer MEDICARE ==
[2016-09-27 11:00] VITALS: BP 122/58
--- NOTE | 2019-05-07 13:27 | RAD ---
EXAM: Chest, 2 views. HISTORY: Bronchitis. COMPARISON: None. FINDINGS: 2 views of the chest are obtained. There is no infiltrate, pleural effusion or pneumothorax. The heart is normal in size. IMPRESSION: No acute pulmonary finding. Electronically signed by: Kari Bello MD (05/07/2019 1:24 PM) [facility] [place]
--- NOTE | 2019-05-08 16:27 | RAD ---
Examination: MAMMO SHAMEKA DIAG LT, BREAST LEFT History: Palpable left upper breast abnormality Comparison/Correlation: 07/09/2017 and diagnostic left mammogram, 11/05/2018 bilateral diagnostic mammographic exam Findings: MLO and CC images of the left breast were obtained with 3-D imaging. CAD was utilized. Increased size of the masses involving the left upper breast corresponding to known cysts is evident. Calcifications along the upper breast are stable. Multiple smaller masses also 1.5 cm diameter cyst at the 12:00 region is present. It is located 5 cm from the nipple. Slight thickening of the wall of this cyst and interval is present. This corresponds to site of the palpable nodule. Other cysts are also present measuring 3 cm in diameter and 2.7 cm in diameter. The larger of these has a thin septation. At the inner aspect of the left breast 10:00 region 2.5 cm from the nipple, there is a 0.3 cm x 0.6 cm x 0.3 cm tall hypoechoic structure with attenuated margins. This corresponds to finding on mammography which is new compared 07/09/2017 but has a corresponding finding on 10/17/2018. No suspicious left axillary lymph nodes. Impression: BI-RADS Category 4-suspicious for malignancy. At the left breast 10:00 region, there is a hypoechoic mass lesion for which ultrasound-guided aspiration is also a core biopsy is recommended. In addition, a biopsy of the wall of the cyst corresponding to the palpable abnormality is recommended. Follow-up ultrasound and imaging in 6 months of the cyst with a thickened wall is recommended. Electronically signed by: Alcon Montes MD (05/08/2019 4:24 PM) [email or web address]
== END | disposition home or self-care (01) ==
LOC: MAMMO 09:54
PROVIDERS: ATTEND Internal Medicine
DX: N60.02 Solitary cyst of left breast (principal); N63.20 Unspecified lump in the left breast, unspecified quadrant; R92.8 Other abnormal and inconclusive findings on diagnostic imaging of breast; J20.9 Acute bronchitis, unspecified
CPT/HCPCS: 71046; 76641; 77065; G0279; 77061

== ENCOUNTER → 2019-05-29 | Outpatient (CLI) | payer MEDICARE ==
[2016-09-27 11:00] VITALS: BP 122/58
--- NOTE | 2019-05-29 18:59 | RAD ---
Examination: DIGITAL DIAGNOSTIC LT, US GUID NDL PLACE/ASPI/BX History: Left breast mass and suspicious cyst Comparison/Correlation: 05/17/2019 left breast ultrasound and mammographic exam Findings: Risks, benefits, and alternatives regarding left breast ultrasound-guided core biopsy of the mass at the inner aspect and the thick walled cyst at the 12:00 region were discussed with the patient and informed consent was obtained. Cleansing with ChloraPrep at the anticipated sites of needle placement was performed. Sterile draping, sterile gel, and sterile probe cover were utilized. Approximately 5 cc of 1 percent lidocaine was administered at each site subcutaneously and along the expected course of the needle tracks. Lateral approach was utilized to biopsy the 10:00 region mass. Scalpel incision was made, an introducer was placed, and 12-gauge core biopsy needle was then placed. 2 specimens were obtained with the needle trough open. With marker was then placed. Lateral approach was utilized to biopsy the thick-walled portion of the cyst at the 12:00 region. Scalpel incision was made, introducer was placed, and aspiration of the cyst was performed with removal of 1.5 cc of slightly hemorrhagic complex fluid. Then a 12-gauge core biopsy needle was utilized to obtain 4 samples of the thick walled portion of the 12:00 cyst of interest. Clip marker was then placed. Both the specimens were placed in separate formalin jars. The patient tolerated procedure well without immediate complications. Subsequently, MLO and CC images of the left breast were obtained. Markers are present at the expected sites of interest. This includes at the 9:30 region of the left breast and 10: 12:00 region of the left breast. Left breast masses are stable. Breast parenchyma is heterogeneously dense. Impression: Successful biopsy of the left breast mass of interest and the thick-walled 12:00 region cyst. Electronically signed by: Alcon Montes MD (05/29/2019 6:56 PM) [email or web address]
--- NOTE | 2019-05-30 17:06 | PATHOLOGY ---
[facility] Accession Number: [id number] . 01 Material submitted: . PART A: breast - LEFT BREAST MASS 10:00 2.5CMFN 0.3CM. Modifiers: left, 10:00 PART B: breast - LEFT BREAST MASS 12:00 5CMFN 1.5CM. Modifiers: left, 12:00 . 01 Clinical history: . Left breast mass 10:00 2.5 cm FN 0.3 cm Left breast mass 12:00 5 cm FN 1.5 cm . 02 Diagnosis: A. Breast tissue, left breast mass 10:00: - Proliferative fibrocystic changes with the following components: - Florid ductal epithelial hyperplasia. - Stromal fibrosis. - Mild duct ectasia. - Cystic change. - Apocrine metaplasia. - Small hemangioma. . B. Breast tissue, left breast mass 12:00 needle biopsies: - Columnar cell change with columnar cell hyperplasia and few calcifications. - Fibrocystic changes with the following components: - Stromal fibrosis. - Mild duct ectasia, focal. - Mild ductal epithelial hyperplasia, focal. - Duct stasis, focal. . (JPM:milka; 05/30/2019) [facility] 05/30/2019 [facility] . 02 Comment: There is no atypia or evidence of malignancy. (SANDEEM:milka; 05/30/2019) . 02 Electronically signed: . Richard Jaquez MD, Pathologist NPI- [id number] . 01 Gross description: . A. The specimen is received in formalin, labeled "Noelle Snyder, left breast 10:00 2.5 cm FN" and consists of 2 needle cores of pink-epna to yellow breast tissue measuring 1.3 cm and 1.6 cm in length and 0.2 cm each in diameter which are entirely submitted in A1-A2. The specimen was collected at 2 PM on 05/29/2019 and placed in formalin at 2:05 PM. The cold ischemic time is 5 minutes and the total formalin fixation time is greater than 6 hours but less than 72 hours. . B. The specimen is received in formalin, labeled "Noelle Snyder, left breast 12:00 5 cm FN" consists of 4 needle cores of yellow-pink tissue measuring between 0.3 cm and 1.3 cm in length and 0.2 cm each in diameter which are entirely submitted in B1-B3. The specimen was collected at 2:16 PM on 05/29/2019 and placed in formalin at 2:20 PM. The cold ischemic time is 4 minutes and the total formalin fixation time is greater than 6 hours but less than 72 hours. (SDY; 05/29/2019) [facility]U 05/30/2019 1246 Local . 02 Pathologist provided ICD-10: N60.12, N62, N60.32, N60.42, N60.82, D18.01 . 02 CPT . 188208, 180441 Specimen Comment: A courtesy copy of this report has been sent to [phone], [phone] Specimen Comment: [id number], Specimen Comment: Report sent to ,DR SEGOVIA / DR PATEL Performed at: [facility] [address], [place] [id number] MD Neftaly Jaramillo MD Phone: [phone] Performed at: 02 [facility] [address] [place], [place] [id number] MD Richard Jaquez MD Phone: [phone]
== END ==
LOC: US 12:44
PROVIDERS: ATTEND Surgery
DX: N63.20 Unspecified lump in the left breast, unspecified quadrant (principal); N60.32 Fibrosclerosis of left breast
CPT/HCPCS: 19083; 19084; 77065; 88305; C1713; 19081; 76942

== ENCOUNTER → 2019-09-11 | Outpatient (CLI) | payer MEDICARE ==
[2016-09-27 11:00] VITALS: BP 122/58
[~2019-09-11] MED LIST changes: +ESTR-113 PO; -ESTR1TAB15 PO
--- NOTE | 2019-09-12 08:58 | RAD ---
EXAM: Diagnostic left breast ultrasound. HISTORY: Tender left breast lump. History of breast cysts.. TECHNIQUE: Grayscale and color Doppler imaging of the left breast was performed in the patient's reported area of palpable tenderness at the 12:00 position 5 cm from the nipple. COMPARISON: Left diagnostic mammogram of 05/29/2019 and left breast cyst aspiration of that same day. FINDINGS: Targeted ultrasound of the patient's left breast in the area of palpable tenderness reveals 2 simple cysts measuring 2.4 and 2.2 cm in diameter. These are at the 12:00 position 2 cm from the nipple and at the 12:00 position 5 cm from the nipple. No suspicious sonographic findings noted. BI-RADS CATEGORY: 2: Benign. RECOMMENDATION: 1. Clinical management and routine mammographic screening. Patient requests cyst aspiration for symptomatic relief. We will attempt to accommodate her at this visit. Electronically signed by: Katerin Yu MD (09/12/2019 8:55 AM) [id number]
--- NOTE | 2019-09-12 09:17 | RAD ---
Examination: Left breast aspiration of 2 symptomatic cysts. INDICATION: Tender lumps in the left breast. History of cysts. COMPARISON: Earlier same day left breast diagnostic ultrasound. TECHNIQUE AND FINDINGS: Informed consent was obtained and an appropriate procedural pause observed. Using standard sterile technique, ultrasound guidance and local anesthesia, an 18-gauge needle was advanced into both cysts (the 2.4 cm cyst in the 12:00 position 5 cm from the nipple was initially accessed and the 2.2 cm cyst at the 12:00 position 2 cm from the nipple was subsequently accessed) and complete evacuation of both cysts was sequentially achieved through the same puncture. A total of 8 mL of brown fluid was aspirated and discarded. Thereafter, a small amount of room air was insufflated into the cyst cavities to assist with desiccation and limit their recurrence. Patient tolerated the procedure without incident. She was discharged in stable condition to follow up with her referring physician after postprocedure instructions were reviewed. IMPRESSION: Successful left breast aspiration of 2 symptomatic cysts with retrieval of 8 mL of brown fluid. No apparent complications. Post procedure instructions reviewed in a patient discharge stable condition to follow up with her referring physician. Electronically signed by: Katerin Yu MD (09/12/2019 9:14 AM) [id number]
== END | disposition home or self-care (01) ==
LOC: US 07:47
PROVIDERS: ATTEND Surgery
DX: N63.20 Unspecified lump in the left breast, unspecified quadrant (principal)
CPT/HCPCS: 19000; 76641; 76942

== ENCOUNTER → 2020-03-02 | Outpatient (CLI) | payer MEDICARE ==
[2016-09-27 11:00] VITALS: BP 122/58
--- NOTE | 2020-03-02 10:39 | KCIC ---
EXAM: DUAL ENERGY X-RAY ABSORPTIOMETRY (DEXA). HISTORY: Postmenopausal screening. FINDINGS: The lowest measured T-score is -0.8 in the left hip, based on a bone mineral density of 0.8 42 g/cm^2. Refer to the worksheets for full detail. There has been a 0.3 percent increase in density of the left hip and 4.0 percent increase in density of the lumbar spine compared to a study dated 01/01/2018. IMPRESSION: Normal. Bone mineral density yields a T-score of -1.0 or greater. Fracture risk is low. METHODOLOGY: Dual energy x-ray absorptiometry was performed to measure bone mineral density. The foll owing analysis is based on the 2019 Official Positions of the International Society for Clinical Dens itometry: Measurements of the hips and the average of L1-L4 are preferred. When the spine and/or hip cannot be feasibly measured or interpreted, or in the setting of hyperparathyroidism, distal radial bone minera l density may be measured. The lumbar spine T-score is based on the average bone mineral density of L1-L4. In the setting of art ifact or anatomic abnormality, some lumbar levels may be excluded, and the remaining levels used for calculation. A single lumbar level is not used for diagnosis, and if only a single level is available for assessment, another anatomic site will be used to assign a diagnosis. The hip T-score is based on the bone mineral density measurement of the femoral neck or total proxima l femur of either side, whichever is lowest. Bilateral mean values are not used for diagnosis. The forearm T-score is derived from 33% of the distal radius of the nondominant forearm. Electronically signed by: Kari Bello MD (03/02/2020 10:37 AM) [id number]
== END ==
LOC: KCIC DEXA 08:52
PROVIDERS: ATTEND Internal Medicine
DX: Z78.0 Asymptomatic menopausal state (principal)
CPT/HCPCS: 77080

== ENCOUNTER → 2020-05-31 | Outpatient (CLI) | payer MEDICARE ==
[2016-09-27 11:00] VITALS: BP 122/58
--- NOTE | 2020-05-31 11:27 | KCIC ---
EXAM: Bilateral digital screening mammogram with tomosynthesis. HISTORY: 69-year-old female presents for screening mammography. TECHNIQUE: Full-field digital craniocaudal and mediolateral oblique 2D and 3D tomosynthesis images of both breasts are obtained for evaluation. Computer aided detection was applied. COMPARISON: Sonogram dated 09/11/2019 and mammograms dated 05/29/2019, 05/07/2019 and 10/17/2018 and 2017. BREAST PARENCHYMAL DENSITY: Level C - Heterogeneously dense. FINDINGS: There is no new suspicious mass, microcalcification or region of architectural distortion. There are multiple circumscribed nodular densities throughout both breasts consistent with previously demonstrated benign cysts and fibrocystic lesions. Several these are decreased in size compared to t he prior study and there are few which are increased in size compared to the prior study. The multipl icity of these lesions favors benignity. There are multiple benign calcifications, including a cluste r of complications within the 2:00 position of the left breast. The nearly 3 year course of stability favors benignity. IMPRESSION: BI-RADS Category 2: Benign finding(s). RECOMMENDATION: Annual mammography is recommended. If your mammogram demonstrates that you have dense breast tissue, which could hide abnormalities, and if you have other risk factors for breast cancer that have been identified, you might benefit from s upplemental screening tests that may be suggested by your ordering physician. Dense breast tissue, i n and of itself, is a relatively common condition. This information is not provided to cause undue c oncern, but rather to raise your awareness and to promote discussion with your physician regarding th e presence of other risk factors, in addition to dense breast tissue. A report of your mammography re sults will be sent to you and your physician. You should contact your physician if you have any ques tions or concerns regarding this report. Mammography is a sensitive method for finding small breast cancers, but it does not detect them all a nd is not a substitute for careful clinical examination. A negative mammogram does not negate a clin ically suspicious finding and should not result in delay in biopsying a clinically suspicious abnorma lity. PQRS compliance statement - Patient information was entered into a reminder system with a target due date for the next mammogram. "Our facility is accredited by the [employer] Mammography [employer]." Electronically signed by: Kari Bello MD (05/31/2020 11:24 AM) [email or web address]
== END ==
LOC: KCIC MAMMO 08:10
PROVIDERS: ATTEND Family Medicine
DX: Z12.31 Encounter for screening mammogram for malignant neoplasm of breast (principal)
CPT/HCPCS: 77063; 77067

== ENCOUNTER → 2021-06-02 | Outpatient (CLI) | payer MEDICARE ==
[2016-09-27 11:00] VITALS: BP 122/58
--- NOTE | 2021-06-02 10:42 | KCIC ---
Bilateral digital screening mammograms with 3-D tomosynthesis: Reason for examination: Routine screening. Comparison is made to previous studies dated back to 02/25/2016. Bilateral mammograms in CC and oblique projections were obtained with 2-D imaging and 3-D tomosynthes is imaging on a Siemens Inspiration unit and reviewed on the workstation. Interpretation was made antonio h the benefit of CAD. The skin and nipples show no abnormalities. No abnormal axillary lymph nodes are seen. The breast par enchyma is extremely dense. (Breast density: Category D.) There are circumscribed nodules bilaterally . There has been enlargement of a some of these nodules. These likely represent cysts but further satnam luation with ultrasound is recommended. There are no suspicious calcifications identified. Benign elmer cifications are present. Biopsy clips remain present on the left. Impression: Nodular densities bilaterally with enlargement. These likely represent cysts but recommend further ev aluation with ultrasound. Your patient's mammogram demonstrates that she has dense breast tissue (breast density category C or D), which could hide abnormalities, and if she has other risk factors for breast cancer that have bee n identified, she might benefit from supplemental screening tests that may be suggested by you as her ordering physician. Dense breast tissue, in and of itself, is a relatively common condition. Therefo re, this information is not provided to cause undue concern, but rather to raise your awareness and t o promote discussion with your patient regarding the presence of other risk factors, in addition to d ense breast tissue. Your patient's mammography results will be sent to her. BI-RAD Category 0: Incomplete. Needs additional imaging evaluation. "Our facility is accredited by the [employer] Mammography Program." This patient's information has been entered into a reminder system for the patient to be notified wit h the results of her examination and a target date for the next mammogram. Electronically signed by: Dione Zimmerman MD (06/02/2021 10:39 AM) [email or web address]
== END ==
LOC: KCIC MAMMO 08:52
PROVIDERS: ATTEND Family Medicine
DX: Z12.31 Encounter for screening mammogram for malignant neoplasm of breast (principal)
CPT/HCPCS: 77063; 77067

== ENCOUNTER → 2021-06-15 | Outpatient (CLI) | payer MEDICARE ==
[2016-09-27 11:00] VITALS: BP 122/58
--- NOTE | 2021-06-15 16:15 | KCIC ---
Bilateral breast ultrasound: Reason for examination: Enlarging nodules bilaterally on screening mammogram. Comparison is made to mammographic exam dated 06/02/2021 and previous ultrasound examination of the le ft breast dated 05/07/2019. Bilateral whole breast ultrasound including evaluation of all 4 quadrants and the retroareolar and ax illary regions of both breasts was performed. In the right breast at the 12:00 position 3 cm from the nipple, there are 2 small hypoechoic nodules with no abnormal vascularity measuring approximately 4.8 mm and 5.9 mm in size which may represent co mplicated cysts. At the 7:00 position 3 cm from the nipple, there is a 1.1 cm cyst. At the 9:00 posit ion, there is a 5.7 mm circumscribed nodule consistent with a complicated cyst. At the 11:00 position 5.5 cm from the nipple, there is a 5.1 mm nodule consistent with a cyst. There is some ductal ectasi a in the retroareolar position. No abnormal appearing lymph nodes are seen in the axilla. In the left breast at the 12:00 position there is a small 5.3 mm hypoechoic nodule consistent with a complicated cyst. At the 1:00 position 4 cm from the nipple, there is a 2.2 cm simple cyst. At the 2: 00 position 4.5 cm from the nipple, there is a 9 mm hypoechoic circumscribed nodule which probably re presents a complicated cyst or possibly a small fibroadenoma with no abnormal vascularity. At the 3:0 0 position, there is a 5.4 mm hypoechoic circumscribed nodule which probably represents a complicated cyst. At the 4:00 position 3 cm from the nipple, there is a 5.3 mm hypoechoic nodule which may repre sent a complicated cyst or fibroadenoma. No suspicious-appearing nodules are seen. There is some duct al ectasia in the retroareolar position. No abnormal appearing lymph nodes are seen in the left axill a. IMPRESSION: Multiple anechoic and hypoechoic nodules throughout the breasts bilaterally consistent with simple cy sts, complicated cysts and/or fibroadenoma. No suspicious-appearing nodules are seen. Recommend 6 mon th follow-up with ultrasound. BI-RADS Category 3: Probably Benign. "Our facility is accredited by the [employer] Mammography Program." This patient's information has been entered into a reminder system for the patient to be notified wit h the results of her examination and a target date for the next mammogram. Electronically signed by: Dione Zimmerman MD (06/15/2021 4:13 PM) [email or web address]
== END ==
LOC: KCIC US 12:45
PROVIDERS: ATTEND Family Medicine
DX: N63.11 Unspecified lump in the right breast, upper outer quadrant (principal); N63.12 Unspecified lump in the right breast, upper inner quadrant; N63.21 Unspecified lump in the left breast, upper outer quadrant; N63.24 Unspecified lump in the left breast, lower inner quadrant; N60.01 Solitary cyst of right breast; N60.02 Solitary cyst of left breast; N60.42 Mammary duct ectasia of left breast; N60.41 Mammary duct ectasia of right breast
CPT/HCPCS: 76641